=== PATIENT | male | born 1940 | race African-American/Black ===

== ENCOUNTER 2020-03-31 04:32 | Inpatient (IN) | payer MEDICARE, MEDICAID ==
[~2020-03-31] VITALS: Ht 190.5 cm; Wt 103.4 kg
[2020-03-31] MEDS ORDERED: SODIUM CHLORIDE 0.9% 1,000 ML IV ONE (06:15)
[2020-03-31 06:39] LABS: BASOPHILS % 0.3 % (0.0-2.0); HEMATOCRIT. 47.5 % (42.0-52.0); HEMOGLOBIN. 15.7 g/dL (14.0-18.0); LYMPHOCYTES % 13.8 % (20.0-50.0); MEAN CORPUSCULAR HEMOGLOBIN 28.8 pg (28.0-32.0); MEAN CORPUSCULAR VOLUME 87.4 fL (80.0-94.0); MEAN PLATELET VOLUME 10.6 fl (7.4-10.4); MONOCYTES % 11.1 % (2.0-8.0); NEUTROPHILS % 74.8 % (40.0-76.0); PLATELET 201 x1000/uL (130-400); RED BLOOD CELL COUNT 5.44 mill/uL (4.7-6.1); RED CELL DISTRIBUTION WIDTH 17.3 % (11.6-14.6)
[2020-03-31 06:44] LABS: CHLORIDE 99 mEq/L (98-107)
[2020-03-31 07:11] LABS: CLARITY URINE CLEAR (CLEAR); COLOR URINE YELLOW (YELLOW); KETONES URINE TRACE (NEGATIVE); LEUKOCYTE ESTERASE URINE NEGATIVE (NEGATIVE); NITRITE URINE NEGATIVE (NEGATIVE); OCCULT BLOOD URINE NEGATIVE (NEGATIVE); PROTEIN URINE TRACE (NEGATIVE); SPECIFIC GRAVITY URINE 1.025 (1.005-1.030)
[2020-03-31] MEDS ORDERED: DEXT 5%/0.9% NACL 1,000 ML IV ONE (07:30)
[2020-03-31] MEDS ORDERED: DIPHENHYDRAMINE 50MG/ML VIAL IV PRN (11:15)
[2020-03-31] MEDS ORDERED: ONDANSETRON HCL 4MG/2ML INJ IV PRN (11:15)
[2020-03-31] MEDS ORDERED: MAGNESIUM/ALUMINUM HYDROXIDE/SIMETHICONE 30ML UDC PO PRN (11:15)
[2020-03-31] MEDS ORDERED: CLONIDINE 0.1MG TABLET PO PRN (11:15)
[2020-03-31] MEDS ORDERED: DEXTROSE 50% WATER 50ML SYRINGE IV PRN (11:15)
[2020-03-31] MEDS ORDERED: DEXT 5%/0.45% NACL 1000ML 1,000 ML IV SCH (11:32)
[2020-03-31] MEDS ORDERED: ENOXAPARIN 40MG/0.4ML SYR SUBCUT SCH (11:36)
[2020-03-31 12:00] VITALS: BP 162/90
[2020-03-31] MEDS: BLOOD SUGAR DIAGNOSTIC STRIP TEST SCH ×3 (12:38→21:35)
[2020-03-31] MEDS: INSULIN LISPRO 100 UNITS/ML SUBCUT SCH ×3 (12:38→21:00)
[2020-03-31] MEDS: AMLODIPINE 5MG TABLET PO SCH (12:39)
[2020-03-31 16:00] VITALS: BP 126/74
[2020-03-31] MEDS: ACETAMINOPHEN 325MG TABLET PO PRN (17:26)
[2020-03-31 20:00] VITALS: BP 146/73
[2020-03-31] MEDS ORDERED: LISI-651 PO (20:06)
[2020-03-31] MEDS ORDERED: AMLO5TAB4 PO (20:06)
[2020-03-31] MEDS ORDERED: PANT40TA4 PO (20:16)
[2020-03-31] MEDS ORDERED: METF100092 PO (20:16)
[2020-03-31] MEDS ORDERED: SIMV-43 PO (20:16)
[2020-03-31] MEDS ORDERED: GLIM4TAB36 PO (20:16)
[2020-03-31] MEDS ORDERED: PIOG15TA66 PO (20:16)
[2020-03-31] MEDS ORDERED: ACAR25TA2 PO (20:16)
[2020-03-31] MEDS ORDERED: PREG50CA PO (20:16)
[2020-03-31] MEDS ORDERED: HYDR25TA PO (20:16)
[2020-03-31] MEDS ORDERED: ASPI-1158 MT (20:16)
[2020-04-01] VITALS (7 sets, daily range): BP systolic 107–154; BP diastolic 52–81
[2020-04-01 06:04] LABS: CHLORIDE 101 mEq/L (98-107)
[2020-04-01 06:05] LABS: BASOPHILS % 0.5 % (0.0-2.0); EOSINOPHILS % 0.1 % (0.0-5.0); HEMATOCRIT. 40.2 % (42.0-52.0); HEMOGLOBIN. 13.6 g/dL (14.0-18.0); LYMPHOCYTES % 18.1 % (20.0-50.0); MEAN CORPUSCULAR HEMOGLOBIN 29.3 pg (28.0-32.0); MEAN CORPUSCULAR VOLUME 86.7 fL (80.0-94.0); MEAN PLATELET VOLUME 9.9 fl (7.4-10.4); NEUTROPHILS % 68.3 % (40.0-76.0); PLATELET 146 x1000/uL (130-400); RED BLOOD CELL COUNT 4.64 mill/uL (4.7-6.1); RED CELL DISTRIBUTION WIDTH 16.2 % (11.6-14.6)
[2020-04-01 06:09] LABS: PHOSPHORUS 1.5 mg/dL (2.5-4.9)
[2020-04-01] MEDS: PANTOPRAZOLE 40MG DR TABLET PO SCH ×2 (07:22→23:27)
[2020-04-01] MEDS: BLOOD SUGAR DIAGNOSTIC STRIP TEST SCH ×4 (07:28→21:18)
[2020-04-01] MEDS: INSULIN LISPRO 100 UNITS/ML SUBCUT SCH ×4 (07:28→23:29)
[2020-04-01] MEDS ORDERED: ENOXAPARIN 30MG/0.3ML SYR SUBCUT SCH (09:00)
[2020-04-01] MEDS: HYDROCHLOROTHIAZIDE 25MG TABLET PO SCH (10:02)
[2020-04-01] MEDS: AMLODIPINE 5MG TABLET PO SCH (10:02)
[2020-04-01] MEDS: LISINOPRIL 10MG TABLET PO SCH (10:03)
[2020-04-01] MEDS: ASPIRIN 81MG EC TABLET PO SCH (10:03)
[2020-04-01] MEDS ORDERED: POTASSIUM PHOS,M-BASIC-D-BASIC 30 MMOL in DEXT 5% WATER 500 ML IV NR (11:30)
[2020-04-01] MEDS ORDERED: MAGNESIUM 1 G PREMIX 100 ML IV NR (12:00)
[2020-04-01] MEDS: ACETAMINOPHEN 325MG TABLET PO PRN (16:51)
[2020-04-01] MEDS: LOPERAMIDE HCL 2MG CAPSULE PO PRN (16:51)
[2020-04-01] MEDS ORDERED: DEXTROSE 50% WATER 50ML SYRINGE IV PRN (20:00)
[2020-04-01 20:19] LABS: T4 FREE 1.13 ng/dL (0.76-1.46)
[2020-04-01] MEDS ORDERED: INSULIN GLARGINE UD 100 UNITS/ML SYR SUBCUT SCH (22:00)
[2020-04-01] MEDS: DEXAMETHASONE 10 MG/ML VIAL IV SCH (23:27)
[2020-04-01] MEDS: ENOXAPARIN 120MG/0.8ML SYR SUBCUT SCH (23:33)
[2020-04-01] MEDS: CEFTRIAXONE 1,000 MG in DEXTROSE 5% WATER 50 ML IV SCH (23:45)
[2020-04-02] VITALS: BP 138/74
[2020-04-02] MEDS ORDERED: AZITHROMYCIN 500 MG in DEXT 5% WATER 250 ML IV SCH ×2
[2020-04-02] MEDS: ACETAMINOPHEN 325MG TABLET PO PRN (00:14)
[2020-04-02 04:00] VITALS: BP 102/62
[2020-04-02] MEDS: BLOOD SUGAR DIAGNOSTIC STRIP TEST SCH ×4 (05:27→21:07)
[2020-04-02] MEDS: PANTOPRAZOLE 40MG DR TABLET PO SCH ×2 (06:08→20:59)
[2020-04-02] MEDS: INSULIN LISPRO 100 UNITS/ML SUBCUT SCH ×3 (06:09→18:10)
[2020-04-02 06:37] LABS: BASOPHILS % 0.5 % (0.0-2.0); HEMATOCRIT. 43.7 % (42.0-52.0); HEMOGLOBIN. 14.6 g/dL (14.0-18.0); LYMPHOCYTES % 11.7 % (20.0-50.0); MEAN CORPUSCULAR VOLUME 86.9 fL (80.0-94.0); MEAN PLATELET VOLUME 10.3 fl (7.4-10.4); MONOCYTES % 6.1 % (2.0-8.0); NEUTROPHILS % 81.7 % (40.0-76.0); PLATELET 151 x1000/uL (130-400); RED BLOOD CELL COUNT 5.04 mill/uL (4.7-6.1); RED CELL DISTRIBUTION WIDTH 16.8 % (11.6-14.6)
[2020-04-02 07:01] LABS: PHOSPHORUS 2.8 mg/dL (2.5-4.9)
[2020-04-02 08:00] VITALS: BP 128/89
[2020-04-02] MEDS: DEXAMETHASONE 10 MG/ML VIAL IV SCH (10:17)
[2020-04-02] MEDS: AMLODIPINE 5MG TABLET PO SCH (10:17)
[2020-04-02] MEDS: ASPIRIN 81MG EC TABLET PO SCH (10:18)
[2020-04-02] MEDS: HYDROCHLOROTHIAZIDE 25MG TABLET PO SCH (10:18)
[2020-04-02] MEDS: LISINOPRIL 10MG TABLET PO SCH (10:18)
[2020-04-02] MEDS: ENOXAPARIN 120MG/0.8ML SYR SUBCUT SCH (10:44)
[2020-04-02 12:00] VITALS: BP 146/87
[2020-04-02] MEDS ORDERED: INSULIN LISPRO 100 UNITS/ML SUBCUT SCH (16:40)
[2020-04-02] MEDS: INSULIN LISPRO (LOW DOSE) 100 UNITS/ML SUBCUT SCH (18:08)
[2020-04-02 20:00] VITALS: BP 144/73
[2020-04-02] MEDS: BENZONATATE 100MG CAPSULE PO PRN (20:59)
[2020-04-02] MEDS: CEFTRIAXONE 1,000 MG in DEXTROSE 5% WATER 50 ML IV SCH (22:10)
[2020-04-02] MEDS: INSULIN GLARGINE UD 100 UNITS/ML SYR SUBCUT SCH (22:23)
[2020-04-03] VITALS: BP 128/79
[2020-04-03] MEDS: GUAIFENESIN 200MG/10ML SUGAR FREE UDC PO PRN ×3 (01:36→21:35)
[2020-04-03] MEDS: BENZONATATE 100MG CAPSULE PO PRN (06:33)
[2020-04-03] MEDS: PANTOPRAZOLE 40MG DR TABLET PO SCH ×2 (06:33→21:35)
[2020-04-03] MEDS: INSULIN LISPRO 100 UNITS/ML SUBCUT SCH ×3 (06:36→16:33)
[2020-04-03] MEDS: BLOOD SUGAR DIAGNOSTIC STRIP TEST SCH ×4 (06:47→21:04)
[2020-04-03 08:00] VITALS: BP 134/69
[2020-04-03] MEDS: INSULIN LISPRO (LOW DOSE) 100 UNITS/ML SUBCUT SCH ×3 (08:00→16:33)
[2020-04-03] MEDS: ENOXAPARIN 30MG/0.3ML SYR SUBCUT SCH ×2 (09:41→21:35)
[2020-04-03] MEDS: ASPIRIN 81MG EC TABLET PO SCH (09:41)
[2020-04-03] MEDS: AMLODIPINE 5MG TABLET PO SCH (09:42)
[2020-04-03] MEDS: LISINOPRIL 10MG TABLET PO SCH (09:42)
[2020-04-03] MEDS: HYDROCHLOROTHIAZIDE 25MG TABLET PO SCH (09:42)
[2020-04-03] MEDS: ACETAMINOPHEN 325MG TABLET PO PRN (11:57)
[2020-04-03 12:00] VITALS: BP 136/72
[2020-04-03 16:10] VITALS: BP 133/70
[2020-04-03] MEDS ORDERED: BENZONATATE 100MG CAPSULE PO PRN (18:15)
[2020-04-03] MEDS ORDERED: BENZONATATE 100MG CAPSULE PO SCH (20:00)
[2020-04-03] MEDS: CEFTRIAXONE 1,000 MG in DEXTROSE 5% WATER 50 ML IV SCH (22:46)
[2020-04-03] MEDS: INSULIN GLARGINE UD 100 UNITS/ML SYR SUBCUT SCH (22:46)
[2020-04-04] VITALS: BP 129/66
[2020-04-04] MEDS: GUAIFENESIN 200MG/10ML SUGAR FREE UDC PO PRN (01:40)
[2020-04-04] MEDS: BLOOD SUGAR DIAGNOSTIC STRIP TEST SCH ×4 (07:40→20:42)
[2020-04-04 08:00] VITALS: BP 139/67
[2020-04-04] MEDS: AMLODIPINE 5MG TABLET PO SCH (08:59)
[2020-04-04] MEDS: PANTOPRAZOLE 40MG DR TABLET PO SCH (08:59)
[2020-04-04] MEDS: ASPIRIN 81MG EC TABLET PO SCH (08:59)
[2020-04-04] MEDS: LISINOPRIL 10MG TABLET PO SCH (08:59)
[2020-04-04] MEDS: HYDROCHLOROTHIAZIDE 25MG TABLET PO SCH (09:00)
[2020-04-04] MEDS: ENOXAPARIN 30MG/0.3ML SYR SUBCUT SCH ×2 (09:02→21:43)
[2020-04-04] MEDS: INSULIN LISPRO (LOW DOSE) 100 UNITS/ML SUBCUT SCH ×3 (09:03→17:22)
[2020-04-04] MEDS: INSULIN LISPRO 100 UNITS/ML SUBCUT SCH ×3 (09:04→17:35)
[2020-04-04 12:00] VITALS: BP 150/71
[2020-04-04] MEDS: ACETAMINOPHEN 325MG TABLET PO PRN (12:46)
[2020-04-04 15:06] LABS: A/G RATIO 0.6 (0.7-1.7); ALBUMIN 2.3 g/dL (2.9-4.4); ALPHA-1-GLOBULIN 0.4 g/dL (0.0-0.4); ALPHA-2-GLOBULIN 1.3 g/dL (0.4-1.0); BETA GLOBULIN 1.2 g/dL (0.7-1.3); M-SPIKE Not Observed g/dL (Not Observed); TOTAL PROTEIN SERUM 6.3 g/dL (6.0-8.5)
[2020-04-04 16:00] VITALS: BP 145/76
[2020-04-04] MEDS: DEXAMETHASONE 4MG/ML 1ML VIAL IV SCH (17:57)
[2020-04-04 20:00] VITALS: BP 120/69
[2020-04-04] MEDS: FAMOTIDINE 20MG TABLET PO SCH (21:43)
[2020-04-04] MEDS: INSULIN GLARGINE UD 100 UNITS/ML SYR SUBCUT SCH (21:45)
[2020-04-04] MEDS: CEFTRIAXONE 1,000 MG in DEXTROSE 5% WATER 50 ML IV SCH (22:03)
[2020-04-05] VITALS: BP 141/76
[2020-04-05 04:00] VITALS: BP 150/82
[2020-04-05 06:31] LABS: HEMATOCRIT. 43.6 % (42.0-52.0); HEMOGLOBIN. 14.8 g/dL (14.0-18.0); MEAN CORPUSCULAR HEMOGLOBIN 29.3 pg (28.0-32.0); MEAN CORPUSCULAR VOLUME 86.3 fL (80.0-94.0); MEAN PLATELET VOLUME 10.2 fl (7.4-10.4); PLATELET 215 x1000/uL (130-400); RED BLOOD CELL COUNT 5.05 mill/uL (4.7-6.1); RED CELL DISTRIBUTION WIDTH 16.3 % (11.6-14.6)
[2020-04-05] MEDS: FAMOTIDINE 20MG TABLET PO SCH ×2 (06:41→22:54)
[2020-04-05] MEDS: BLOOD SUGAR DIAGNOSTIC STRIP TEST SCH ×4 (06:41→21:53)
[2020-04-05 08:00] VITALS: BP 145/82
[2020-04-05] MEDS: GUAIFENESIN 200MG/10ML SUGAR FREE UDC PO PRN (08:08)
[2020-04-05] MEDS: LOPERAMIDE HCL 2MG CAPSULE PO PRN ×2 (08:09→19:00)
[2020-04-05] MEDS: ASPIRIN 81MG EC TABLET PO SCH (08:09)
[2020-04-05] MEDS: HYDROCHLOROTHIAZIDE 25MG TABLET PO SCH (08:09)
[2020-04-05] MEDS: LISINOPRIL 10MG TABLET PO SCH (08:09)
[2020-04-05] MEDS: AMLODIPINE 5MG TABLET PO SCH (08:09)
[2020-04-05] MEDS: DEXAMETHASONE 4MG/ML 1ML VIAL IV SCH (08:09)
[2020-04-05] MEDS: ENOXAPARIN 30MG/0.3ML SYR SUBCUT SCH ×2 (08:10→22:54)
[2020-04-05] MEDS: INSULIN LISPRO 100 UNITS/ML SUBCUT SCH ×3 (08:11→18:48)
[2020-04-05] MEDS: INSULIN LISPRO (LOW DOSE) 100 UNITS/ML SUBCUT SCH ×3 (08:11→18:47)
[2020-04-05 12:00] VITALS: BP 122/67
[2020-04-05 14:46] LABS: PLATELET ESTIMATE NORMAL
[2020-04-05 16:00] VITALS: BP 101/71
[2020-04-05 20:00] VITALS: BP 142/70
[2020-04-05] MEDS: CEFTRIAXONE 1,000 MG in DEXTROSE 5% WATER 50 ML IV SCH (22:54)
[2020-04-05] MEDS: INSULIN GLARGINE UD 100 UNITS/ML SYR SUBCUT SCH (22:56)
[2020-04-06] VITALS (8 sets, daily range): BP systolic 125–176; BP diastolic 53–84
[2020-04-06] MEDS: ACETAMINOPHEN 325MG TABLET PO PRN ×2 (01:09→08:48)
[2020-04-06] MEDS: GUAIFENESIN-DM 200MG-20MG/10ML UDC PO PRN ×3 (05:45→21:21)
[2020-04-06] MEDS: BLOOD SUGAR DIAGNOSTIC STRIP TEST SCH ×4 (06:46→21:05)
[2020-04-06] MEDS: INSULIN LISPRO 100 UNITS/ML SUBCUT SCH ×3 (08:46→17:48)
[2020-04-06] MEDS: INSULIN LISPRO (LOW DOSE) 100 UNITS/ML SUBCUT SCH ×3 (08:47→16:50)
[2020-04-06] MEDS: ENOXAPARIN 30MG/0.3ML SYR SUBCUT SCH ×2 (08:47→21:12)
[2020-04-06] MEDS: HYDROCHLOROTHIAZIDE 25MG TABLET PO SCH (08:48)
[2020-04-06] MEDS: DEXAMETHASONE 4MG/ML 1ML VIAL IV SCH (08:48)
[2020-04-06] MEDS: LOPERAMIDE HCL 2MG CAPSULE PO PRN (08:48)
[2020-04-06] MEDS: LISINOPRIL 10MG TABLET PO SCH (08:48)
[2020-04-06] MEDS: ASPIRIN 81MG EC TABLET PO SCH (08:49)
[2020-04-06] MEDS: AMLODIPINE 5MG TABLET PO SCH (08:49)
[2020-04-06] MEDS: FAMOTIDINE 20MG TABLET PO SCH ×2 (08:51→21:11)
[2020-04-06] MEDS: INSULIN GLARGINE UD 100 UNITS/ML SYR SUBCUT SCH (21:12)
[2020-04-07] VITALS: BP 95/51
[2020-04-07 04:00] VITALS: BP 121/64
[2020-04-07] MEDS: BLOOD SUGAR DIAGNOSTIC STRIP TEST SCH ×4 (06:38→21:26)
[2020-04-07 07:56] VITALS: BP 132/58
[2020-04-07] MEDS: FAMOTIDINE 20MG TABLET PO SCH ×2 (07:57→22:01)
[2020-04-07] MEDS: INSULIN LISPRO (LOW DOSE) 100 UNITS/ML SUBCUT SCH ×3 (07:58→17:34)
[2020-04-07] MEDS: INSULIN LISPRO 100 UNITS/ML SUBCUT SCH ×3 (07:58→17:35)
[2020-04-07] MEDS: AMLODIPINE 5MG TABLET PO SCH (08:05)
[2020-04-07] MEDS: LISINOPRIL 10MG TABLET PO SCH (08:05)
[2020-04-07] MEDS: HYDROCHLOROTHIAZIDE 25MG TABLET PO SCH (08:05)
[2020-04-07] MEDS: ASPIRIN 81MG EC TABLET PO SCH (08:05)
[2020-04-07] MEDS: DEXAMETHASONE 4MG/ML 1ML VIAL IV SCH (08:05)
[2020-04-07] MEDS: ENOXAPARIN 30MG/0.3ML SYR SUBCUT SCH ×2 (08:06→22:01)
[2020-04-07 11:58] VITALS: BP 136/88
[2020-04-07] MEDS ORDERED: TRAMADOL 50MG TABLET PO PRN (15:16)
[2020-04-07 16:00] VITALS: BP 112/65
[2020-04-07 20:00] VITALS: BP 137/71
[2020-04-07] MEDS: INSULIN GLARGINE UD 100 UNITS/ML SYR SUBCUT SCH (22:00)
[2020-04-08] VITALS (18 sets, daily range): BP systolic 105–156; BP diastolic 21–93
[2020-04-08] MEDS: FAMOTIDINE 20MG TABLET PO SCH ×2 (06:45→20:11)
[2020-04-08] MEDS: BLOOD SUGAR DIAGNOSTIC STRIP TEST SCH ×4 (08:21→21:16)
[2020-04-08] MEDS: INSULIN LISPRO 100 UNITS/ML SUBCUT SCH ×2 (11:30→16:30)
[2020-04-08] MEDS: INSULIN LISPRO (LOW DOSE) 100 UNITS/ML SUBCUT SCH ×2 (12:03→16:30)
[2020-04-08 19:10] LABS: BG BASE EXCESS -1.5 mmol/L (-2.0-2.0); BG CARBOXYHEMOGLOBIN 0.5 % (0.5-1.5); BG DEOXYHEMOGLOBIN 12.7 % (0.0-5.0); BG FRACTION INSPIRED OXYGEN 100; BG HCO3 ACT 20.9 mmol/L (22.0-26.0); BG METHEMOGLOBIN 0.2 % (0.0-1.5); BG OXYGEN SATURATION 87.2 % (92.0-98.5); BG OXYHEMOGLOBIN 86.6 % (94.0-97.0); BG PCO2 29.6 mmHg (35.0-45.0); BG PH 7.467 (7.350-7.450); BG PO2 50.1 mmHg (75.0-100.0); BG SAMPLE SITE RIGHT RADIAL; BG TOTAL HEMOGLOBIN 15.5 g/dL (12.0-18.0); BG VENT MODE MASK - NRB
[2020-04-08] MEDS: ACETAMINOPHEN 325MG TABLET PO PRN (20:11)
[2020-04-08] MEDS: ENOXAPARIN 30MG/0.3ML SYR SUBCUT SCH (20:12)
[2020-04-08] MEDS: INSULIN GLARGINE UD 100 UNITS/ML SYR SUBCUT SCH (22:32)
[2020-04-09] VITALS (24 sets, daily range): BP systolic 107–164; BP diastolic 48–112
[2020-04-09] MEDS: FAMOTIDINE 20MG TABLET PO SCH ×2 (05:30→21:42)
[2020-04-09] MEDS: INSULIN LISPRO (LOW DOSE) 100 UNITS/ML SUBCUT SCH ×4 (05:39→22:10)
[2020-04-09] MEDS: BLOOD SUGAR DIAGNOSTIC STRIP TEST SCH ×4 (05:39→21:00)
[2020-04-09] MEDS: INSULIN LISPRO 100 UNITS/ML SUBCUT SCH ×3 (05:39→17:38)
[2020-04-09] MEDS: LISINOPRIL 10MG TABLET PO SCH ×2 (09:00→09:14)
[2020-04-09] MEDS: AMLODIPINE 5MG TABLET PO SCH ×2 (09:00→09:14)
[2020-04-09] MEDS: HYDROCHLOROTHIAZIDE 25MG TABLET PO SCH (09:13)
[2020-04-09] MEDS: METOPROLOL TARTRATE 25MG TABLET PO SCH ×2 (09:14→21:42)
[2020-04-09] MEDS: ASPIRIN 81MG EC TABLET PO SCH (09:14)
[2020-04-09] MEDS: DEXAMETHASONE 4MG/ML 1ML VIAL IV SCH (09:15)
[2020-04-09] MEDS: ENOXAPARIN 30MG/0.3ML SYR SUBCUT SCH ×2 (09:17→15:21)
[2020-04-09] MEDS: ACETAMINOPHEN 325MG TABLET PO PRN (12:05)
[2020-04-09] MEDS: INSULIN GLARGINE UD 100 UNITS/ML SYR SUBCUT SCH (21:40)
[2020-04-10] VITALS (16 sets, daily range): BP systolic 101–154; BP diastolic 20–99
[2020-04-10] MEDS: INSULIN LISPRO 100 UNITS/ML SUBCUT SCH ×2 (06:30→11:30)
[2020-04-10] MEDS: FAMOTIDINE 20MG TABLET PO SCH (06:30)
[2020-04-10] MEDS: BLOOD SUGAR DIAGNOSTIC STRIP TEST SCH (06:45)
[2020-04-10] MEDS: METOPROLOL TARTRATE 25MG TABLET PO SCH (09:00)
[2020-04-10] MEDS: AMLODIPINE 5MG TABLET PO SCH (09:00)
[2020-04-10] MEDS: LISINOPRIL 10MG TABLET PO SCH (09:00)
[2020-04-10] MEDS: HYDROCHLOROTHIAZIDE 25MG TABLET PO SCH ×2 (09:00→09:33)
[2020-04-10] MEDS: ASPIRIN 81MG EC TABLET PO SCH ×2 (09:00→09:33)
[2020-04-10] MEDS: ENOXAPARIN 30MG/0.3ML SYR SUBCUT SCH (09:33)
[2020-04-10] MEDS: DEXAMETHASONE 4MG/ML 1ML VIAL IV SCH (09:34)
[2020-04-10 10:18] LABS: BG CARBOXYHEMOGLOBIN 1.5 % (0.5-1.5); BG DEOXYHEMOGLOBIN 28.4 % (0.0-5.0); BG FRACTION INSPIRED OXYGEN 100; BG HCO3 ACT 19.2 mmol/L (22.0-26.0); BG METHEMOGLOBIN 0.1 % (0.0-1.5); BG OXYGEN SATURATION 71.1 % (92.0-98.5); BG PCO2 27.8 mmHg (35.0-45.0); BG PH 7.457 (7.350-7.450); BG SAMPLE SITE RIGHT RADIAL; BG VENT MODE MASK - NRB
== END 2020-04-10 13:40 | disposition expired | DRG 871 ==
LOC: ER 04:32 → 6EST 10:05 → EDBEDREQSVC 10:06 → EDBEDREQTM 10:06 → EDBEDREQ 10:06 → CANRESERV 10:36 → ENRESERV 10:36 → EDBEDREQSVC 10:58 → ENRESERV 11:17 → 7EST 04-01 17:06 → 7WST 04-03 18:24 → MICUSO 04-08 10:24
PROVIDERS: ADMIT Internal Medicine; ATTEND Internal Medicine
PROC: XW13325 Transfusion of Convalescent Plasma (Nonautologous) into Peripheral Vein, Percutaneous Approach, New Technology Group 5 (ICD-10-PCS; principal; 2020-04-06)
DX: A41.89 Other specified sepsis (principal); U07.1 COVID-19; G93.41 Metabolic encephalopathy; J12.89 Other viral pneumonia; J96.01 Acute respiratory failure with hypoxia; N17.9 Acute kidney failure, unspecified; I45.2 Bifascicular block; E11.649 Type 2 diabetes mellitus with hypoglycemia without coma; E78.00 Pure hypercholesterolemia, unspecified; E83.39 Other disorders of phosphorus metabolism; E86.0 Dehydration; I10 Essential (primary) hypertension; E88.09 Other disorders of plasma-protein metabolism, not elsewhere classified; I44.1 Atrioventricular block, second degree; E11.65 Type 2 diabetes mellitus with hyperglycemia; Z66 Do not resuscitate; B97.89 Other viral agents as the cause of diseases classified elsewhere; Z79.82 Long term (current) use of aspirin; Z79.899 Other long term (current) drug therapy
CPT/HCPCS: 36415; 36600; 71045; 76700; 80048; 80053; 81003; 82140; 82270; 82375; 82533; 82728; 82805; 82962; 83036; 83735; 83880; 84100; 84145; 84155; 84165; 84439; 84443; 84481; 84484; 85025; 85379; 86140; 86850; 86900; 86927; 87015; 87045; 87426; 87427; 87449; 87493; 87635; 89055; 93005; 93306; 93970; 97161; 99291; C1893; J0456; J0696; J1100; J1650; J1815; J3475; J3490; J7030; J7042; J7060; J7070; P9017